=== PATIENT | female | born 1955 | race Caucasian/White ===

== ENCOUNTER 2019-09-17 14:32 | Emergency (ER) | payer OTHER ==
--- OUTSIDE RECORDS SUMMARY | 2019-09-17 14:38 | XMS REPORT | Continuity of Care Document ---
:1955 External Reference #:[id number] Author Name Oumar Villegas, OD Address [address] [place] [address] Care Team Providers Name Role Phone Kemal PATCH FINISHER, Jessica - Nurse Care Team Information Urgent Care Nurse Practitioner [phone] Practitioner Problems Description No Information Available Social History Type Date Description Comments Sex Unknown ETOH Use Never used alcohol Tobacco Use Start: Unknown Patient has never smoked Smoking Status Reviewed: 07/26/19 Patient has never smoked Allergies, Adverse Reactions, Alerts Active Allergies Reaction Severity Comments Date Animals 03/06/2017 Dust 03/06/2017 Dust Mites 03/06/2017 Medications Active Medications SIG Qnty Indications Ordering Provider Date Fish Oil Unknown Capsules Immunizations Description No Information Available Vital Signs Date Vital Result Comment 03/18/2018 10:07am Intraocular Pressure Right Eye 15 mmHg Intraocular Pressure Left Eye 15 mmHg 03/06/2017 1:14pm Intraocular Pressure Right Eye 17 mmHg Intraocular Pressure Left Eye 16 mmHg Results Description No Information Available Procedures Date Code Description Status 07/26/2019 56872 Fundus Photography W/Interpretation & Report Completed 07/26/2019 21786 Eye Exam Est Comprehensive Completed Medical Devices Description No Information Available Encounters Description No Information Available Assessments Date Code Description Provider 07/26/2019 H25.13 Age-related nuclear cataract, bilateral Oumar Villegas, OD 07/26/2019 H40.013 Open angle with borderline findings, low risk, Oumar Villegas, OD bilateral 07/26/2019 H52.13 Myopia, bilateral Oumar Villegas, OD Plan of Treatment 07/26/2019 - Oumar Villegas, ODH25.13 Age-related nuclear cataract, [id number] Open angle with borderline findings, low risk, [id number] Myopia, bilateralFollow up:yearly full, sooner PRN Functional Status Description No Information Available Mental Status Description No Information Available Referrals Description No Information Available
[2019-09-17 14:59] VITALS: BP 152/94
--- NOTE | 2019-09-17 15:25 | UC ---
Lower Extremity/Ankle HPI - HPI Summary HPI Summary: patient was feeling fine this am, raked leaves and went shopping. at 12:30 p today she was walking from car to stairs and up stairs when she felt "something not right" with R knee. saw knee get very swollen, applied ice pack but still cannot bear weight. 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 Onset/Duration: Sudden Onset Pain Intensity: 0 Aggravating Factor(s): Standing Alleviating Factor(s): Rest, Ice Able to Bear Weight: No - states no - Allergies/Home Medications Allergies/Adverse Reactions: Allergies Allergy/AdvReac Type Severity Reaction Status Date / Time Environmental Allergy Unknown Uncoded 09/17/19 17:14 Reaction Details Home Medications: Home Medications Naproxen Sodium [Aleve] 220 mg PO Q6HR 09/17/19 [History Confirmed 09/17/19] PMH/Surg Hx/FS Hx/Imm Hx Previously Healthy: Yes - Surgical History Surgical History: Unable to Obtain/Confirm - Family History Known Family History: Positive: Non-Contributory - Social History 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 Negative: Fever Skin: Positive: Negative. Negative: Rash, Bruising Respiratory: Positive: Negative Cardiovascular: Positive: Negative Musculoskeletal: Positive: Decreased ROM, Other: - swollen R knee Neurological: Positive: Negative Psychological: Positive: Negative Is Patient Immunocompromised?: No Physical Exam Triage Information Reviewed: Yes Appearance: Well-Appearing, No Pain Distress, Well-Nourished Vital Signs: Initial Vital Signs Temp 100.5 F 09/17/19 14:52 Pulse 76 09/17/19 14:52 Resp 15 09/17/19 14:52 BP 152/94 09/17/19 14:52 Pulse Ox 100 09/17/19 14:52 Respiratory Exam: Normal Respiratory: Positive: Lungs clear Cardiovascular Exam: Normal Cardiovascular: Positive: RRR Musculoskeletal: Positive: ROM Limited @ - R knee, Edema @ - R knee very swollen , no redness, no ecchymosis Neurological Exam: Normal Neurological: Positive: Alert Psychological Exam: Normal Skin Exam: Normal Skin: Negative: Rashes Lower Extremity Course/Dx - Differential Dx/Diagnosis Differential Diagnosis/HQI/PQRI: Bursitis, Strain Provider Diagnosis: Knee effusion, right Discharge ED - Sign-Out/Discharge Documenting (check all that apply): Patient Departure All imaging exams completed and their final reports reviewed: No - Discharge Plan Condition: Stable Disposition: HOME Patient Education Materials: Swollen Knee Joint (ED) Referrals: Lorraine Hopson MS [Primary Care Provider] - 2 Days (recheck B/P) Additional Instructions: Please go directly to [facility] emergency room to have your knee further evaluated There is concern due to the amount of swelling and your fever - Billing Disposition and Condition Condition: STABLE Disposition: Home - Attestation Statements Provider Attestation: Per institutional requirements, I have reviewed the chart, however I did not personally evaluate, interact with , or disposition this patient.
--- NOTE | 2019-09-18 14:01 | UC ---
- Progress Note Progress Note: wet read correct Course/Dx - Diagnoses Provider Diagnoses: Knee effusion, right Discharge ED - Sign-Out/Discharge Documenting (check all that apply): Post-Discharge Follow Up All imaging exams completed and their final reports reviewed: No - Discharge Plan Condition: Stable Disposition: HOME Patient Education Materials: Swollen Knee Joint (ED) Referrals: Eliel BERG,Lorraine [Primary Care Provider] - 2 Days (recheck B/P) Additional Instructions: Please go directly to [facility] emergency room to have your knee further evaluated There is concern due to the amount of swelling and your fever - Billing Disposition and Condition Condition: STABLE Disposition: Home
--- NOTE | 2019-09-18 14:06 | UC ---
- Progress Note Progress Note: . Course/Dx - Diagnoses Provider Diagnoses: Knee effusion, right Discharge ED - Sign-Out/Discharge Documenting (check all that apply): Post-Discharge Follow Up All imaging exams completed and their final reports reviewed: Yes - Discharge Plan Condition: Stable Disposition: HOME Patient Education Materials: Swollen Knee Joint (ED) Referrals: Lorraine Hopson MS [Primary Care Provider] - 2 Days (recheck B/P) Additional Instructions: Please go directly to [facility] emergency room to have your knee further evaluated There is concern due to the amount of swelling and your fever - Billing Disposition and Condition Condition: STABLE Disposition: Home
== END 2019-09-17 16:49 | disposition home or self-care (01) ==
LOC: UCEAST 14:32
DX: M25.461 Effusion, right knee (principal); Z91.09 Other allergy status, other than to drugs and biological substances
CPT/HCPCS: 99212; G0463

== ENCOUNTER 2019-09-17 17:07 | Emergency (ER) | payer OTHER ==
--- NOTE | 2019-09-17 18:05 | ED ---
Lower Extremity - HPI Summary HPI Summary: This patient is a 64 year old F presenting to [facility] with a chief complaint of edema in R knee since the morning. Pt reports she was walking up stairs, and her knee kept getting more swollen. She does not remember doing anything or trauma, never felt any pain from her knee. She just feels that she cannot put pressure on her knee 2/2 instability. Pt had a fever at [facility], but no fever in the ED. Denies infectious symptoms. Symptoms aggravated by movement, better w rest. - History of Current Complaint Chief Complaint: EDExtremityLower Stated Complaint: RT KNEE SWELLING/FEVER PER PT Time Seen by Provider: 09/17/19 17:47 Hx Obtained From: Patient Mechanism Of Injury: Unknown Onset/Duration: Hours Severity Currently: None Pain Intensity: 0 Pain Scale Used: 0-10 Numeric Location: Is Discrete @ - knee Associated Signs And Symptoms: Positive: Swelling, Knee Pain Aggravating Factor(s): Movement, Weight Bearing Alleviating Factor(s): Rest - Allergies/Home Medications Allergies/Adverse Reactions: Allergies Allergy/AdvReac Type Severity Reaction Status Date / Time Environmental Allergy Unknown Uncoded 09/17/19 17:14 Reaction Details PMH/Surg Hx/FS Hx/Imm Hx Sensory History: Denies: Hx Legally Blind, Hx Deafness Opthamlomology History: Denies: Hx Legally Blind EENT History: Denies: Hx Deafness - Cancer History Hx Chemotherapy: No Hx Radiation Therapy: No Infectious Disease History: No Infectious Disease History: Denies: Traveled Outside the [place] in Last 30 Days - Family History Known Family History: Positive: Hypertension - Social History Alcohol Use: Weekly Alcohol Amount: once Substance Use Type: Reports: None Hx Tobacco Use: No Smoking Status (MU): Never Smoked Tobacco Review of Systems Negative: Fever Positive: Edema - knee All Other Systems Reviewed And Are Negative: Yes Physical Exam - Summary Physical Exam Summary: Constitutional: Well-developed, Well-nourished, Alert. (-) Distressed Skin: Warm, Dry HENT: Normocephalic; Atraumatic Eyes: Conjunctiva normal Neck: Musculoskeletal ROM normal neck. (-) JVD, (-) Stridor, (-) Nuchal rigidity Cardio: Rhythm regular, rate normal, Heart sounds normal; Intact distal pulses; Radial pulses are 2+ and symmetric. (-) Murmur Pulmonary/Chest wall: Effort normal. (-) Respiratory distress, (-) Wheezes, (-) Rales Abd: Soft, (-) tenderness, (-) Distension, (-) Guarding, (-) Rebound Musculoskeletal: (-) Edema; R knee significant super patellar and patellar effusion, tenderness of fibular head, no erythema of the knee, ROM to 90 degrees secondary to effusion, 2+ DP pulse of R leg Lymph: (-) Cervical adenopathy Neuro: Alert, Oriented x3 Psych: Mood and affect Normal Triage Information Reviewed: Yes Vital Signs On Initial Exam: Initial Vitals Temp Pulse Resp BP Pulse Ox 98.5 F 82 16 162/116 100 09/17/19 17:09 09/17/19 17:09 09/17/19 17:09 09/17/19 17:09 09/17/19 17:09 Vital Signs Reviewed: Yes Procedures - Procedure Summary Procedure Summary: Right Knee Aspiration: R knee, area was cleansed with chloraprep, 3 cc 1% lido used to numb the supra patellar effusion on lateral knee and removed 50 cc of blood, pt tolerated well. - Sedation Patient Received Moderate/Deep Sedation with Procedure: No Diagnostics - Vital Signs Vital Signs Temp Pulse Resp BP Pulse Ox 09/17/19 17:45 77 98 09/17/19 17:43 77 143/95 97 09/17/19 17:09 98.5 F 82 16 162/116 100 - Laboratory Result Diagrams: 09/17/19 17:58 09/17/19 17:58 Lab Statement: Any lab studies that have been ordered have been reviewed, and results considered in the medical decision making process. Re-Evaluation - Re-Evaluation First Eval Re-Evaluation Time: 18:20 Comment: Knee aspiration, 50 cc bloody fluid, tolerated well, improved ROM Lower Extremity Course/Dx - Course Course Of Treatment: 64 y/o F p/w acute R knee swelling. - Physical exam with an effusion of the right knee mostly suprapatellar. Limited range of motion secondary to effusion, no surrounding erythema, 2+ DP pulse. Patient is afebrile unclear why she had a fever earlier urgent care. Patient denies infectious symptoms, doesn't appear to have septic joint, no white count. Knee was aspirated, approx 50 cc of blood without any evidence of infection. Patient was advised she likely has an ligamentous or meniscal tear causing hemarthrosis, placed in a knee immobilizer and crutches and given orthopedic follow-up. - Diagnoses Provider Diagnoses: Hemarthrosis, Knee effusion, right Discharge ED - Sign-Out/Discharge Documenting (check all that apply): Patient Departure - Discharge - Discharge Plan Condition: Stable Disposition: HOME Patient Education Materials: Knee Pain (ED), Hemarthrosis (ED) Referrals: Eliel YOO SYRUPER,Lorraine [Primary Care Provider] - Gerard Philip MD [Medical Doctor] - 2 Days Additional Instructions: You were seen in the ER for knee swelling. Your labs were normal. Your XRay showed a large effusion of your knee. We were able to tap it and got blood. You likely have a tear in a ligament in you knee. Please use the knee immobilizer and crutches. Follow up with orthopedics, return for worsening pain, fevers, redness of the knee or if you are concerned. It was a pleasure taking care of you today - Billing Disposition and Condition Condition: STABLE Disposition: Home - Attestation Statements Document Initiated by El: Yes Documenting Scribe: Chanelle Roca Provider For Whom El is Documenting (Include Credential): Michael Thomas MD Scribe Attestation: Chanelle Quach, scribed for Michael Thomas MD on 09/17/19 at 2046. Scribe Documentation Reviewed: Yes Provider Attestation: The documentation as recorded by the Chanelle molina accurately reflects the service I personally performed and the decisions made by , Michael Thomas MD Status of Scribe Document: Viewed
[2019-09-17] MEDS ORDERED: Lidocaine 1% MPF ** 5 ML VIAL ONE (18:08)
[2019-09-17 18:10] LABS: ABS Eosinophils 0.1 10^3/ul (0-0.6); ABS Lymphocytes 1.4 10^3/ul (1.0-4.8); ABS Monocytes 0.5 10^3/ul (0-0.8); ABS Neutrophils 3.8 10^3/ul (1.5-7.7); Eosinophil % 1.4 %; Hematocrit 39 % (35-47); Hemoglobin 13.2 g/dL (12.0-16.0); Lymphocyte % 24.7 %; Mean Corpuscular HGB Conc 34 g/dL (31-36); Mean Corpuscular Hemoglobin 31 pg (27-31); Mean Corpuscular Volume 92 fL (80-97); Mean Platelet Volume 8.5 fL (7.4-10.4); Nucleated Red Blood Cells % 0.1; Platelet Count 208 10^3/uL (150-450); Red Blood Count 4.24 10^6 /uL (3.70-4.87); Red Cell Distribution Width 13 % (10-15); White Blood Count 5.8 10^3/uL (3.5-10.8)
[2019-09-17 18:21] LABS: Albumin 4.2 g/dL (3.2-5.2); Albumin/Globulin Ratio 1.4 (1-3); BUN/Creatinine Ratio 20.3 (8-20); Calcium 9.6 mg/dL (8.6-10.3); EGFR African American 96.2 (>60); EGFR Non-African American 79.5 (>60); Globulin 2.9 g/dL (2-4); Potassium 3.9 mmol/L (3.5-5.0); Total Bilirubin 0.4 mg/dL (0.2-1.0); Total Protein 7.1 g/dL (6.4-8.9)
[2019-09-17 18:56] VITALS: BP 136/86
== END 2019-09-17 18:55 | disposition home or self-care (01) ==
LOC: ED 17:07
DX: M25.061 Hemarthrosis, right knee (principal); M25.461 Effusion, right knee
CPT/HCPCS: 20610; 36415; 80053; 85025; 99282